=== PATIENT | female | born 1985 | race Caucasian/White ===

== ENCOUNTER 2016-10-04 09:56 | Emergency (ER) | payer BC ==
[~2016-10-04] VITALS: Ht 157.5 cm; Wt 64.6 kg
[~2016-10-04 09:56] MED LIST: ALBUTEROL17 G1 IH; CLEOCIN300 MG PO; CLINDAMYCIN HC150 MG PO; CLINDAMYCIN HC300 MG PO; LODINE200 MG PO; METHADONE 22 MG/1 ML PO; MOTRIN600 M1 PO; NOHOMEMEDS; SOMA350 M1 PO; TRAMADOL HCL50 MG PO; TYLENOL WITH C1 EACH PO
[2016-10-04] MEDS ORDERED: PERCOCET 5/31 TABLET PO (13:11)
[2016-10-04] MEDS ORDERED: NAPROXEN500 MG PO (13:11)
[2016-10-04] MEDS ORDERED: FLEXERIL10 MG PO (13:11)
[2016-10-04] MEDS ORDERED: PREDNISONE20 MG PO (13:11)
[2016-10-04] MEDS ORDERED: LIDODERM 5% P1 PATCH TD (13:11)
[2016-10-04 13:42] VITALS: BP 103/54
== END 2016-10-04 13:43 | disposition home or self-care (01) ==
LOC: EME 09:56
DX: S22.080A Wedge compression fracture of T11-T12 vertebra, initial encounter for closed fracture (principal); M54.16 Radiculopathy, lumbar region; W18.2XXA Fall in (into) shower or empty bathtub, initial encounter; F17.200 Nicotine dependence, unspecified, uncomplicated
CPT/HCPCS: 72070; 72100; 72220; 99281; 99285; J1885; J2930; J3010

== ENCOUNTER 2016-10-14 15:08 | Emergency (ER) | payer BC ==
[~2016-10-14] VITALS: Ht 157.5 cm; Wt 73.3 kg
[~2016-10-14 15:08] MED LIST changes: +FLEXERIL10 MG PO; +LIDODERM 5% P1 PATCH TD; +NAPROXEN500 MG PO; +PERCOCET 5/31 TABLET PO; +PREDNISONE20 MG PO
[2016-10-14 15:21] VITALS: BP 159/81
[2016-10-14] MEDS ORDERED: MOBIC7.5 MG PO (17:46)
== END 2016-10-14 18:34 | disposition home or self-care (01) ==
LOC: EME 15:08
DX: M54.9 Dorsalgia, unspecified (principal); M54.31 Sciatica, right side; S22.089D Unspecified fracture of T11-T12 vertebra, subsequent encounter for fracture with routine healing; F17.200 Nicotine dependence, unspecified, uncomplicated; Z88.1 Allergy status to other antibiotic agents; Z88.6 Allergy status to analgesic agent; Z88.0 Allergy status to penicillin
CPT/HCPCS: 99281; 99284; J1885; J3010; J7512

== ENCOUNTER 2016-10-27 15:59 | Emergency (ER) | payer BC ==
[~2016-10-27] VITALS: Ht 157.5 cm; Wt 73.8 kg
[~2016-10-27 15:59] MED LIST changes: +MOBIC7.5 MG PO
[2016-10-27 16:06] VITALS: BP 148/90
== END 2016-10-27 18:34 | disposition left against medical advice (07) ==
LOC: EME 15:59
DX: Z91.81 History of falling (principal); Z53.21 Procedure and treatment not carried out due to patient leaving prior to being seen by health care provider

== ENCOUNTER 2016-11-17 21:04 | Emergency (ER) | payer BC ==
[~2016-11-17] VITALS: Ht 157.5 cm; Wt 69.9 kg
[2016-11-17] MEDS ORDERED: CLINDAMYCIN HC300 MG PO (21:29)
[2016-11-17] MEDS ORDERED: INDOCIN50 MG PO (21:29)
[2016-11-17 23:18] VITALS: BP 112/58
== END 2016-11-17 23:18 | disposition home or self-care (01) ==
LOC: EME 21:04
DX: K04.7 Periapical abscess without sinus (principal); K02.9 Dental caries, unspecified; F17.200 Nicotine dependence, unspecified, uncomplicated
CPT/HCPCS: 99281; 99284; J1885

== ENCOUNTER 2017-06-17 15:26 | Inpatient (IN) | payer BC ==
[~2017-06-17] VITALS: Ht 162.6 cm; Wt 67.4 kg
[~2017-06-17 15:26] MED LIST changes: +INDOCIN50 MG PO
[2017-06-17 15:35] LABS: BASE EXCESS -10.4 mEq/L (-3 to +3); BICARBONATE 17.9 mEq/L (22-26); CARBOXY HGB 5.8 % (0-5); PCO2 48 mm Hg (35-45); PO2 435 mm Hg (80-100); SITE RR; pH 7.18 (7.35-7.45)
[2017-06-17 15:36] LABS: COMMENTS - BLOOD GASES A+C+; DEVICE NRBM; O2 FLOW 15 L/MIN
[2017-06-17 15:51] LABS: EOSINOPHIL (%) 0 % (0-5); HEMATOCRIT 41.6 % (36.0-46.0); IMMATURE GRANULOCYTE (%) 0.6 % (0.0-0.7); IMMATURE GRANULOCYTE COUNT 0.1 K/uL; INSTRUMENT ABS NEUTROPHIL CT 10.4 K/uL; LYMPHOCYTE COUNT 0.9 K/uL (1.0-2.8); MCH 31.6 PG (29.0-34.0); MCV 98.8 FL (83-99); MEAN PLAT.VOLUME 9.2 uM^3 (9.5-12.4); MONOCYTE (%) 7.4 % (3-12); MONOCYTE COUNT 0.9 K/uL (0-0.8); NEUTROPHIL (%) 84.3 % (45-76); NEUTROPHIL COUNT 10.4 K/uL (1.8-6.4); PLATELET COUNT 473 K/uL (156-360); RBC DIS.WIDTH-CV 14.5 % (11.8-14.6); RBC DIS.WIDTH-SD 53.2 % (39-53); RED BLOOD COUNT 4.21 M/uL (3.80-5.20); WHITE BLOOD COUNT 12.4 K/uL (4.1-10.2)
[2017-06-17 15:55] LABS: CHLORIDE 104 mEq/L (99-109); SODIUM 142 mEq/L (136-147)
[2017-06-17 15:58] LABS: GLUCOSE 83 mg/dL (70-99)
[2017-06-17 15:59] LABS: ANION GAP 21 MEQ/L (2-14); TOTAL BILIRUBIN 0.2 mg/dL (0.0-1.0)
[2017-06-17 16:00] LABS: SERUM ETHYL ALCOHOL < 10 mg/dL
[2017-06-17 16:01] LABS: GFR ESTIMATE (CALCULATED) 24 mL/min/
[2017-06-17 16:02] LABS: ALKALINE PHOSPHATASE 61 IU/L (3-129)
[2017-06-17 16:03] LABS: UREA NITROGEN (BUN) 24 mg/dL (9-23)
[2017-06-17 16:05] LABS: SALICYLATE < 5.0 MG/DL (15-30)
[2017-06-17 16:11] LABS: QUANTITATIVE HCG < 4.0 MIU/ML
[2017-06-17 16:21] LABS: POTASSIUM 6.7 mEq/L (3.7-5.4)
[2017-06-17 18:25] LABS: POINT-OF-CARE METER ID UU13113747
[2017-06-17 18:38] LABS: CHLORIDE 108 mEq/L (99-109); SODIUM 136 mEq/L (136-147)
[2017-06-17 18:41] LABS: ANION GAP 12 MEQ/L (2-14)
[2017-06-17 18:42] LABS: GLUCOSE 211 mg/dL (70-99); TOTAL BILIRUBIN 0.2 mg/dL (0.0-1.0)
[2017-06-17 18:44] LABS: ALKALINE PHOSPHATASE 50 IU/L (3-129)
[2017-06-17] MEDS ORDERED: LYRICA100 MG PO (18:44)
[2017-06-17 18:45] LABS: UREA NITROGEN (BUN) 24 mg/dL (9-23)
[2017-06-17] MEDS ORDERED: LIDOCAINE700 MG TP (18:45)
[2017-06-17 18:47] LABS: GFR ESTIMATE (CALCULATED) 33 mL/min/
[2017-06-17 20:15] LABS: INTER. NORMALIZED RATIO 1.3; PROTHROMBIN TIME 14.8 SEC (10.2-12.9)
[2017-06-17 20:15] LABS: AMPHETAMINE NEGATIVE (500 ng/mL); BARBITURATES NEGATIVE (200 ng/mL); BENZODIAZEPINES NEGATIVE (150 ng/mL); COCAINE PRESUMPTIVE POSITIVE (150 ng/mL); METHADONE PRESUMPTIVE POSITIVE (200 ng/mL); METHAMPHETAMINE NEGATIVE (500 ng/mL); OPIATES (MORPHINE) NEGATIVE (100 ng/mL); OXYCODONE NEGATIVE (100 ng/mL); PHENCYCLIDINE NEGATIVE (25 ng/mL); PROPOXYPHENE NEGATIVE (300 ng/mL); THC CANNABINOIDS PRESUMPTIVE POSITIVE (50 ng/mL); TRICYCLIC ANTIDEPRESSANTS PRESUMPTIVE POSITIVE (300 ng/mL)
[2017-06-17 20:17] LABS: ADD MEDTOX COMMENT Y; INTERNAL CONTROLS VALID? YES
[2017-06-17 20:18] LABS: PTT 27.5 SEC (25-37)
[2017-06-17 22:05] LABS: CREATINE KINASE 5037 IU/L (1-294); TOTAL CK 5037 IU/L (1-294)
[2017-06-17 22:06] LABS: CK-MB 74.2 ng/mL (0.0-4.9)
[2017-06-17 23:44] LABS: URIC ACID 7.7 mg/dL (3.1-9.2)
[2017-06-17 23:48] VITALS: BP 109/59
[2017-06-18 01:58] LABS: CHLORIDE 110 mEq/L (99-109); POTASSIUM 4.8 mEq/L (3.7-5.4)
[2017-06-18 01:59] LABS: SODIUM 139 mEq/L (136-147)
[2017-06-18 02:02] LABS: ANION GAP 10 MEQ/L (2-14)
[2017-06-18 02:04] LABS: GFR ESTIMATE (CALCULATED) 50 mL/min/
[2017-06-18 02:05] LABS: UREA NITROGEN (BUN) 21 mg/dL (9-23)
[2017-06-18 02:09] LABS: GLUCOSE 78 mg/dL (70-99)
[2017-06-18 03:38] VITALS: BP 112/64
[2017-06-18 05:42] LABS: INTER. NORMALIZED RATIO 1.5; PROTHROMBIN TIME 16.5 SEC (10.2-12.9)
[2017-06-18 06:37] LABS: ALKALINE PHOSPHATASE 35 IU/L (3-129); ANION GAP 7 MEQ/L (2-14); CHLORIDE 108 MEQ/L (99-109); GFR ESTIMATE (CALCULATED) > 59 mL/min/; POTASSIUM 3.9 MEQ/L (3.7-5.4); SAMPLE HEMOLYSIS CHECK 0; SAMPLE ICTERIC CHECK 0; SAMPLE LIPEMIA CHECK 0; SODIUM 138 MEQ/L (136-147); TOTAL BILIRUBIN 0.2 MG/DL (0.0-1.0); UREA NITROGEN (BUN) 18 mg/dL (9-23)
[2017-06-18 06:38] LABS: GLUCOSE 129 mg/dL (70-99)
[2017-06-18 06:44] LABS: CREATINE KINASE 5521 IU/L (1-294)
[2017-06-18 06:55] LABS: HEMATOCRIT 33.4 % (36.0-46.0); MCH 30.7 PG (29.0-34.0); MCHC 32.9 G/DL (30.0-36.0); MEAN PLAT.VOLUME 9.5 uM^3 (9.5-12.4); PLATELET COUNT 357 K/uL (156-360); RBC DIS.WIDTH-CV 14.4 % (11.8-14.6); RBC DIS.WIDTH-SD 49.7 % (39-53); RED BLOOD COUNT 3.58 M/uL (3.80-5.20); WHITE BLOOD COUNT 12.3 K/uL (4.1-10.2)
[2017-06-18 07:01] LABS: MCV 93.3 FL (83-99)
[2017-06-18 07:56] VITALS: BP 95/53
[2017-06-18 09:19] LABS: ADD MIUA? YES; BILIRUBIN NEGATIVE; BLOOD LARGE; COLOR YELLOW ((YELLOW)); GLUCOSE (STRIP) NEGATIVE; KETONES 5; LEUKOCYTES NEGATIVE; NITRITE NEGATIVE; PROTEIN (STRIP) 100; SPECIFIC GRAVITY 1.018 (1.000-1.030); UROBILINOGEN 0.2 MG/DL (0.2-1.0)
[2017-06-18 09:44] LABS: BACTERIA RARE /HPF; EPITHELIAL CELLS RARE /HPF; HYALINE CASTS 0-5 /LPF; MUCUS TRACE /LPF; RED BLOOD CELLS 0-5 /HPF (0-5); UCUL ADDED? NO; WHITE BLOOD CELLS 0-5 /HPF (0-5)
[2017-06-18 11:13] LABS: HBSG INDEX 0.16
[2017-06-18 11:16] LABS: ANTI-HEPATITIS A VIRUS (IGM) Nonreactive; ANTI-HEPATITIS B CORE (IGM) Nonreactive; HAV INDEX 0.26
[2017-06-18 11:27] LABS: HPCA INDEX 2.29
[2017-06-18 12:02] LABS: POINT-OF-CARE METER ID UU13113781; POINT-OF-CARE USER ID NUTSLF44
[2017-06-18 12:27] VITALS: BP 97/60
[2017-06-18 14:34] LABS: ALKALINE PHOSPHATASE 41 IU/L (3-129); ANION GAP 8 MEQ/L (2-14); CHLORIDE 105 MEQ/L (99-109); GFR ESTIMATE (CALCULATED) > 59 mL/min/; GLUCOSE 93 mg/dL (70-99); POTASSIUM 3.2 MEQ/L (3.7-5.4); SAMPLE HEMOLYSIS CHECK 0; SAMPLE ICTERIC CHECK 0; SAMPLE LIPEMIA CHECK 0; SODIUM 137 MEQ/L (136-147); TOTAL BILIRUBIN 0.2 MG/DL (0.0-1.0); UREA NITROGEN (BUN) 13 mg/dL (9-23)
[2017-06-18 15:03] LABS: TOTAL CK 5605 IU/L (1-294)
[2017-06-18 15:04] LABS: CK-MB 74.8 ng/mL (0.0-4.9); CREATINE KINASE 5605 IU/L (1-294)
[2017-06-18 16:44] VITALS: BP 103/62
[2017-06-18 19:20] LABS: ALKALINE PHOSPHATASE 45 IU/L (3-129); ANION GAP 6 MEQ/L (2-14); CHLORIDE 103 MEQ/L (99-109); GFR ESTIMATE (CALCULATED) > 59 mL/min/; GLUCOSE 135 mg/dL (70-99); SAMPLE HEMOLYSIS CHECK 0; SAMPLE ICTERIC CHECK 0; SAMPLE LIPEMIA CHECK 0; SODIUM 133 MEQ/L (136-147); UREA NITROGEN (BUN) 11 mg/dL (9-23)
[2017-06-18 19:21] LABS: TOTAL BILIRUBIN 0.3 MG/DL (0.0-1.0)
[2017-06-18 20:30] VITALS: BP 109/64
[2017-06-19 00:34] VITALS: BP 110/74
[2017-06-19 01:41] LABS: CHLORIDE 102 mEq/L (99-109); POTASSIUM 2.9 mEq/L (3.7-5.4); SODIUM 136 mEq/L (136-147)
[2017-06-19 01:43] LABS: GLUCOSE 131 mg/dL (70-99)
[2017-06-19 01:44] LABS: ANION GAP 11 MEQ/L (2-14)
[2017-06-19 01:45] LABS: TOTAL BILIRUBIN 0.3 mg/dL (0.0-1.0)
[2017-06-19 01:46] LABS: ALKALINE PHOSPHATASE 54 IU/L (3-129)
[2017-06-19 01:47] LABS: GFR ESTIMATE (CALCULATED) > 59 mL/min/
[2017-06-19 01:48] LABS: UREA NITROGEN (BUN) 8 mg/dL (9-23)
[2017-06-19 04:10] VITALS: BP 112/74
[2017-06-19 07:29] LABS: EOSINOPHIL (%) 0.2 % (0-5); HEMATOCRIT 33.5 % (36.0-46.0); IMMATURE GRANULOCYTE (%) 0.2 % (0.0-0.7); INSTRUMENT ABS NEUTROPHIL CT 7.2 K/uL; LYMPHOCYTE COUNT 0.9 K/uL (1.0-2.8); MCHC 35.2 G/DL (30.0-36.0); MCV 90.8 FL (83-99); MEAN PLAT.VOLUME 9.5 uM^3 (9.5-12.4); MONOCYTE (%) 5.5 % (3-12); MONOCYTE COUNT 0.5 K/uL (0-0.8); NEUTROPHIL COUNT 7.2 K/uL (1.8-6.4); PLATELET COUNT 273 K/uL (156-360); RBC DIS.WIDTH-CV 13.9 % (11.8-14.6); RBC DIS.WIDTH-SD 46.8 % (39-53); RED BLOOD COUNT 3.69 M/uL (3.80-5.20); WHITE BLOOD COUNT 8.5 K/uL (4.1-10.2)
[2017-06-19 07:43] LABS: INTER. NORMALIZED RATIO 1.3; PROTHROMBIN TIME 14.6 SEC (10.2-12.9)
[2017-06-19 07:49] VITALS: BP 111/74
[2017-06-19 08:22] LABS: ANION GAP 8 MEQ/L (2-14); CHLORIDE 103 MEQ/L (99-109); GFR ESTIMATE (CALCULATED) > 59 mL/min/; GLUCOSE 159 mg/dL (70-99); POTASSIUM 3.1 MEQ/L (3.7-5.4); SODIUM 136 MEQ/L (136-147); UREA NITROGEN (BUN) 6 mg/dL (9-23)
[2017-06-19 08:25] LABS: ALKALINE PHOSPHATASE 46 IU/L (3-129); CREATINE KINASE 2972 IU/L (1-294); DIRECT BILIRUBIN 0.1 mg/dL (0.0-0.3); MAGNESIUM 1.8 mg/dl (1.3-2.7); SAMPLE HEMOLYSIS CHECK 0; SAMPLE ICTERIC CHECK 0; SAMPLE LIPEMIA CHECK 0; TOTAL BILIRUBIN 0.3 MG/DL (0.0-1.0)
[2017-06-19 11:30] VITALS: BP 125/81
[2017-06-19 13:49] LABS: ALKALINE PHOSPHATASE 49 IU/L (3-129); ANION GAP 6 MEQ/L (2-14); CHLORIDE 104 MEQ/L (99-109); GFR ESTIMATE (CALCULATED) > 59 mL/min/; POTASSIUM 3.3 MEQ/L (3.7-5.4); SAMPLE HEMOLYSIS CHECK 0; SAMPLE ICTERIC CHECK 0; SAMPLE LIPEMIA CHECK 0; SODIUM 137 MEQ/L (136-147); UREA NITROGEN (BUN) 4 mg/dL (9-23)
[2017-06-19 13:52] LABS: GLUCOSE 111 mg/dL (70-99); TOTAL BILIRUBIN 0.4 MG/DL (0.0-1.0)
[2017-06-19 16:00] VITALS: BP 121/74
[2017-06-19 19:41] LABS: ALKALINE PHOSPHATASE 51 IU/L (3-129); ANION GAP 9 MEQ/L (2-14); CHLORIDE 104 MEQ/L (99-109); GFR ESTIMATE (CALCULATED) > 59 mL/min/; GLUCOSE 96 mg/dL (70-99); POTASSIUM 3.5 MEQ/L (3.7-5.4); SAMPLE HEMOLYSIS CHECK 1; SAMPLE ICTERIC CHECK 0; SAMPLE LIPEMIA CHECK 0; SODIUM 136 MEQ/L (136-147); UREA NITROGEN (BUN) 4 mg/dL (9-23)
[2017-06-19 19:59] LABS: TOTAL BILIRUBIN 0.5 MG/DL (0.0-1.0)
[2017-06-19 20:00] VITALS: BP 110/72
[2017-06-19 20:56] LABS: HCV RNA (IU/mL) <15 IU/mL (<15)
[2017-06-20 00:55] LABS: CHLORIDE 107 mEq/L (99-109); SODIUM 138 mEq/L (136-147)
[2017-06-20 00:57] LABS: GLUCOSE 87 mg/dL (70-99)
[2017-06-20 00:58] LABS: ANION GAP 5 MEQ/L (2-14)
[2017-06-20 01:00] LABS: ALKALINE PHOSPHATASE 50 IU/L (3-129)
[2017-06-20 01:01] LABS: GFR ESTIMATE (CALCULATED) > 59 mL/min/
[2017-06-20 01:02] LABS: UREA NITROGEN (BUN) 3 mg/dL (9-23)
[2017-06-20 01:10] LABS: TOTAL BILIRUBIN 0.5 mg/dL (0.0-1.0)
[2017-06-20 01:25] VITALS: BP 112/68
[2017-06-20 08:00] VITALS: BP 121/83
[2017-06-20 09:06] LABS: HCV RNA (LOG IU/mL) <1.18 (<1.18)
[2017-06-20 10:20] LABS: ALKALINE PHOSPHATASE 53 IU/L (3-129); ANION GAP 8 MEQ/L (2-14); CHLORIDE 106 MEQ/L (99-109); GFR ESTIMATE (CALCULATED) > 59 mL/min/; GLUCOSE 87 mg/dL (70-99); MAGNESIUM 1.6 mg/dl (1.3-2.7); POTASSIUM 3.3 MEQ/L (3.7-5.4); SAMPLE HEMOLYSIS CHECK 0; SAMPLE ICTERIC CHECK 0; SAMPLE LIPEMIA CHECK 0; SODIUM 141 MEQ/L (136-147); UREA NITROGEN (BUN) 2 mg/dL (9-23)
[2017-06-20 10:27] LABS: TOTAL BILIRUBIN 0.7 MG/DL (0.0-1.0)
[2017-06-20 10:56] LABS: EOSINOPHIL (%) 3.1 % (0-5); EOSINOPHIL COUNT 0.2 K/uL (0-0.3); HEMATOCRIT 33.2 % (36.0-46.0); IMMATURE GRANULOCYTE (%) 0.3 % (0.0-0.7); INSTRUMENT ABS NEUTROPHIL CT 3.4 K/uL; LYMPHOCYTE COUNT 1.7 K/uL (1.0-2.8); MCH 30.3 PG (29.0-34.0); MCHC 34.6 G/DL (30.0-36.0); MCV 87.4 FL (83-99); MEAN PLAT.VOLUME 9.8 uM^3 (9.5-12.4); MONOCYTE (%) 8.7 % (3-12); MONOCYTE COUNT 0.5 K/uL (0-0.8); NEUTROPHIL (%) 57.6 % (45-76); NEUTROPHIL COUNT 3.4 K/uL (1.8-6.4); PLATELET COUNT 254 K/uL (156-360); RBC DIS.WIDTH-CV 13.7 % (11.8-14.6); RBC DIS.WIDTH-SD 43.8 % (39-53); WHITE BLOOD COUNT 5.8 K/uL (4.1-10.2)
[2017-06-20 12:17] VITALS: BP 124/79
[2017-06-20 12:21] LABS: INTER. NORMALIZED RATIO 1.3; PROTHROMBIN TIME 14.2 SEC (10.2-12.9)
[2017-06-20 12:54] LABS: ALKALINE PHOSPHATASE 52 IU/L (3-129); ANION GAP 7 MEQ/L (2-14); CHLORIDE 104 MEQ/L (99-109); GFR ESTIMATE (CALCULATED) > 59 mL/min/; GLUCOSE 82 mg/dL (70-99); POTASSIUM 3.6 MEQ/L (3.7-5.4); SAMPLE HEMOLYSIS CHECK 1; SAMPLE ICTERIC CHECK 0; SAMPLE LIPEMIA CHECK 0; SODIUM 140 MEQ/L (136-147); TOTAL BILIRUBIN 0.8 MG/DL (0.0-1.0); UREA NITROGEN (BUN) 2 mg/dL (9-23)
[2017-06-20 19:27] LABS: CHLORIDE 104 MEQ/L (99-109); GFR ESTIMATE (CALCULATED) > 59 mL/min/; GLUCOSE 82 mg/dL (70-99); POTASSIUM 3.1 MEQ/L (3.7-5.4); SODIUM 143 MEQ/L (136-147); TOTAL BILIRUBIN 0.9 MG/DL (0.0-1.0); UREA NITROGEN (BUN) 2 mg/dL (9-23)
[2017-06-20 19:36] LABS: ALKALINE PHOSPHATASE 64 IU/L (3-129); ANION GAP 7 MEQ/L (2-14); SAMPLE HEMOLYSIS CHECK 0; SAMPLE ICTERIC CHECK 0; SAMPLE LIPEMIA CHECK 0
[2017-06-20 20:44] VITALS: BP 119/80
[2017-06-20 23:49] VITALS: BP 123/80
[2017-06-21 04:43] VITALS: BP 112/55
[2017-06-21 05:41] LABS: EOSINOPHIL (%) 0 % (0-5); HEMATOCRIT 29.6 % (36.0-46.0); IMMATURE GRANULOCYTE (%) 0.8 % (0.0-0.7); INSTRUMENT ABS NEUTROPHIL CT 4.1 K/uL; LYMPHOCYTE COUNT 0.7 K/uL (1.0-2.8); MCH 30.5 PG (29.0-34.0); MCHC 35.1 G/DL (30.0-36.0); MCV 86.8 FL (83-99); MEAN PLAT.VOLUME 9.5 uM^3 (9.5-12.4); MONOCYTE (%) 6.3 % (3-12); MONOCYTE COUNT 0.3 K/uL (0-0.8); NEUTROPHIL (%) 79.5 % (45-76); NEUTROPHIL COUNT 4.1 K/uL (1.8-6.4); PLATELET COUNT 286 K/uL (156-360); RBC DIS.WIDTH-CV 13.3 % (11.8-14.6); RBC DIS.WIDTH-SD 42.5 % (39-53); RED BLOOD COUNT 3.41 M/uL (3.80-5.20); WHITE BLOOD COUNT 5.1 K/uL (4.1-10.2)
[2017-06-21 08:00] VITALS: BP 121/79
[2017-06-21 10:54] LABS: ALKALINE PHOSPHATASE 59 IU/L (3-129); ANION GAP 10 MEQ/L (2-14); CHLORIDE 104 MEQ/L (99-109); GFR ESTIMATE (CALCULATED) > 59 mL/min/; GLUCOSE 168 mg/dL (70-99); SAMPLE HEMOLYSIS CHECK 0; SAMPLE ICTERIC CHECK 0; SAMPLE LIPEMIA CHECK 0; SODIUM 143 MEQ/L (136-147); TOTAL BILIRUBIN 0.5 MG/DL (0.0-1.0); UREA NITROGEN (BUN) 4 mg/dL (9-23)
[2017-06-21] MEDS ORDERED: AZITHROMYCIN500 M1 PO (11:22)
[2017-06-21] MEDS ORDERED: IBUPROFEN400 MG PO (11:23)
[2017-06-21] MEDS ORDERED: ELIQUIS5 MG PO ×2 (11:25→11:31)
[2017-06-21] MEDS ORDERED: PREDNISONE20 MG PO (11:25)
[2017-06-21] MEDS ORDERED: PROAIR RESPICL90 MCG IH (11:26)
== END 2017-06-21 12:09 | disposition home or self-care (01) | DRG 917 ==
LOC: EME 15:26 → EDOF 22:32 → 4EAST 22:32 → ENRESERV 22:36 → 4EAST 23:35
PROVIDERS: Emergency Medicine; Hospitalist; Internal Medicine; Internal Medicine Gastroenterology; Internal Medicine Nephrology
DX: T40.3X1A Poisoning by methadone, accidental (unintentional), initial encounter (principal); G92 Toxic encephalopathy; K72.00 Acute and subacute hepatic failure without coma; I26.99 Other pulmonary embolism without acute cor pulmonale; M62.82 Rhabdomyolysis; N17.0 Acute kidney failure with tubular necrosis; T39.395A Adverse effect of other nonsteroidal anti-inflammatory drugs [NSAID], initial encounter; J20.9 Acute bronchitis, unspecified; E87.5 Hyperkalemia; E87.2 Acidosis; E86.0 Dehydration; E83.39 Other disorders of phosphorus metabolism; E87.6 Hypokalemia; F14.10 Cocaine abuse, uncomplicated; F11.20 Opioid dependence, uncomplicated; F12.10 Cannabis abuse, uncomplicated; J45.909 Unspecified asthma, uncomplicated; F32.9 Major depressive disorder, single episode, unspecified; F17.200 Nicotine dependence, unspecified, uncomplicated; F41.9 Anxiety disorder, unspecified; G43.909 Migraine, unspecified, not intractable, without status migrainosus; G89.29 Other chronic pain; K02.9 Dental caries, unspecified; M54.16 Radiculopathy, lumbar region; M50.223 Other cervical disc displacement at C6-C7 level; I95.9 Hypotension, unspecified; M54.31 Sciatica, right side; Z88.1 Allergy status to other antibiotic agents; Z88.0 Allergy status to penicillin; Z88.5 Allergy status to narcotic agent
CPT/HCPCS: 36600; 70450; 71010; 71275; 74176; 80048; 80053; 80074; 80076; 81003; 82140; 82248; 82436; 82550; 82550 91; 82553; 82803; 82948; 83605; 83735; 84100; 84133; 84300; 84550; 84702; 84999; 85025; 85027; 85610; 85730; 87040; 87522 90; 93005; 94640; 94640 76; 94799; 99202; 99281; 99285; G0480; J0132; J0692; J1644; J1650; J1940; J2310; J2405; J3370; J7030; J7050; J7060; J7070; J7512

== ENCOUNTER 2017-06-28 13:57 | Emergency (ER) | payer BC ==
[~2017-06-28] VITALS: Ht 160 cm; Wt 64.6 kg
[~2017-06-28 13:57] MED LIST changes: +AZITHROMYCIN500 M1 PO; +ELIQUIS5 MG PO; +IBUPROFEN400 MG PO; +LIDOCAINE700 MG TP; +LYRICA100 MG PO; +PROAIR RESPICL90 MCG IH
[2017-06-28 15:24] LABS: PROTHROMBIN TIME 10.8 SEC (10.2-12.9)
[2017-06-28 15:25] LABS: HEMATOCRIT 40.3 % (36.0-46.0); MCH 30.6 PG (29.0-34.0); MCHC 33.5 G/DL (30.0-36.0); MEAN PLAT.VOLUME 8.8 uM^3 (9.5-12.4); RBC DIS.WIDTH-CV 15.4 % (11.8-14.6); RBC DIS.WIDTH-SD 51.4 % (39-53); WHITE BLOOD COUNT 8.6 K/uL (4.1-10.2)
[2017-06-28 15:25] LABS: ADD MIUA? NO; BILIRUBIN NEGATIVE; BLOOD NEGATIVE; COLOR STRAW ((YELLOW)); GLUCOSE (STRIP) NEGATIVE; KETONES NEGATIVE; LEUKOCYTES NEGATIVE; NITRITE NEGATIVE; PROTEIN (STRIP) NEGATIVE; UCUL ADDED? NO; UROBILINOGEN 0.2 MG/DL (0.2-1.0)
[2017-06-28 15:26] LABS: MCV 91.4 FL (83-99); PLATELET COUNT 431 K/uL (156-360); RED BLOOD COUNT 4.41 M/uL (3.80-5.20)
[2017-06-28 15:27] LABS: PTT 30.1 SEC (25-37)
[2017-06-28 15:31] LABS: CHLORIDE 105 mEq/L (99-109); SODIUM 140 mEq/L (136-147)
[2017-06-28 15:33] LABS: GLUCOSE 89 mg/dL (70-99)
[2017-06-28 15:35] LABS: ANION GAP 9 MEQ/L (2-14); TOTAL BILIRUBIN 0.5 mg/dL (0.0-1.0)
[2017-06-28 15:37] LABS: ALKALINE PHOSPHATASE 52 IU/L (3-129); GFR ESTIMATE (CALCULATED) > 59 mL/min/
[2017-06-28 15:38] LABS: UREA NITROGEN (BUN) 10 mg/dL (9-23)
[2017-06-28 15:40] LABS: LIPASE 48 U/L (1.0-51.0)
[2017-06-28 15:48] LABS: QUANTITATIVE HCG < 4.0 MIU/ML
[2017-06-28 17:35] VITALS: BP 121/89
== END 2017-06-28 17:35 | disposition home or self-care (01) ==
LOC: EME 13:57
DX: M54.9 Dorsalgia, unspecified (principal); G89.29 Other chronic pain; J45.909 Unspecified asthma, uncomplicated; F41.9 Anxiety disorder, unspecified; F32.9 Major depressive disorder, single episode, unspecified; Z79.01 Long term (current) use of anticoagulants; Z86.711 Personal history of pulmonary embolism; Z88.0 Allergy status to penicillin; Z87.442 Personal history of urinary calculi; Z88.8 Allergy status to other drugs, medicaments and biological substances; F17.200 Nicotine dependence, unspecified, uncomplicated
CPT/HCPCS: 80053; 81003; 83690; 84702; 85027; 85610; 85730; 99281; 99284

== ENCOUNTER 2018-01-01 09:22 | Emergency (ER) | payer BC ==
[~2018-01-01] VITALS: Ht 157.5 cm; Wt 59.8 kg
[2018-01-01 09:37] VITALS: BP 111/72
== END 2018-01-01 09:50 | disposition left against medical advice (07) ==
LOC: EME 09:22
DX: K08.89 Other specified disorders of teeth and supporting structures (principal); H92.01 Otalgia, right ear; Z53.21 Procedure and treatment not carried out due to patient leaving prior to being seen by health care provider

== ENCOUNTER 2018-02-17 23:32 | Emergency (ER) | payer OTHER ==
[~2018-02-17] VITALS: Ht 162.6 cm; Wt 54.5 kg
[2018-02-18 03:11] VITALS: BP 118/98
== END 2018-02-18 03:12 | disposition left against medical advice (07) ==
LOC: EME 23:32
DX: T40.601A Poisoning by unspecified narcotics, accidental (unintentional), initial encounter (principal); R40.20 Unspecified coma; J45.909 Unspecified asthma, uncomplicated; Z88.0 Allergy status to penicillin; Z88.5 Allergy status to narcotic agent; F17.200 Nicotine dependence, unspecified, uncomplicated; Z53.20 Procedure and treatment not carried out because of patient's decision for unspecified reasons
CPT/HCPCS: 99281; 99285; J2310

== ENCOUNTER 2018-04-27 22:29 | Emergency (ER) | payer OTHER ==
[~2018-04-27] VITALS: Ht 154.9 cm; Wt 56.6 kg
[2018-04-28 01:42] LABS: ALBUMIN 4.2 g/dL (3.2-4.8); CHLORIDE 107 mEq/L (99-109); POTASSIUM 3.6 mEq/L (3.7-5.4); SODIUM 139 mEq/L (136-147)
[2018-04-28 01:45] LABS: GLUCOSE 102 mg/dL (70-99)
[2018-04-28 01:47] LABS: TOTAL BILIRUBIN 0.3 mg/dL (0.0-1.0)
[2018-04-28 01:48] LABS: ALKALINE PHOSPHATASE 48 IU/L (3-129); CREATININE 0.8 mg/dL (0.6-1.3); GFR ESTIMATE (CALCULATED) > 59 mL/min/
[2018-04-28 01:49] LABS: UREA NITROGEN (BUN) 10 mg/dL (9-23)
[2018-04-28 01:50] LABS: AST (GOT) 15 IU/L (2-34)
[2018-04-28 01:51] LABS: ALT (GPT) 9 IU/L (3-49)
[2018-04-28] MEDS ORDERED: ULTRACET1 TABLET PO (02:00)
[2018-04-28] MEDS ORDERED: MOTRIN800 MG PO (02:00)
[2018-04-28 02:13] VITALS: BP 145/76
== END 2018-04-28 02:15 | disposition home or self-care (01) ==
LOC: EME 22:29
PROVIDERS: Physician Assistant
DX: S30.0XXA Contusion of lower back and pelvis, initial encounter (principal); W01.0XXA Fall on same level from slipping, tripping and stumbling without subsequent striking against object, initial encounter; Y93.E1 Activity, personal bathing and showering; Y92.002 Bathroom of unspecified non-institutional (private) residence as the place of occurrence of the external cause; J45.909 Unspecified asthma, uncomplicated; G43.909 Migraine, unspecified, not intractable, without status migrainosus; F41.9 Anxiety disorder, unspecified; F32.9 Major depressive disorder, single episode, unspecified; F17.200 Nicotine dependence, unspecified, uncomplicated; Z87.442 Personal history of urinary calculi; Z90.710 Acquired absence of both cervix and uterus; Z88.0 Allergy status to penicillin; Z88.5 Allergy status to narcotic agent
CPT/HCPCS: 72070; 72100; 80053; 99281; 99283